=== PATIENT | male | born 1970 | race Caucasian/White ===

== ENCOUNTER 2019-01-31 14:53 | Emergency (ER) | payer SELFPAY ==
[2019-01-31] MEDS ORDERED: Bupivacaine 0.5% 10 ML SDV INJECT ONE (15:04)
[2019-01-31] MEDS ORDERED: Lidocaine 1% 20 ML MDV INJECT ONE (15:04)
[2019-01-31] MEDS ORDERED: Lidocaine 1% 0 ML ONE (15:08)
--- NOTE | 2019-01-31 15:29 | EDM.PDOC ---
ED HPI GENERAL MEDICAL PROBLEM - General Chief Complaint: Laceration Stated Complaint: STITCHES Time Seen by Provider: 01/31/19 15:04 Source of Information: Reports: Patient History Limitations: Reports: No Limitations - History of Present Illness INITIAL COMMENTS - FREE TEXT/NARRATIVE: History of present illness: []Patient was playing with a Frisbee with his nephew and he ran to catch it and ask side of his truck with his left side of his face. His laceration on the corner of his left eye. Patient denies any loss of consciousness, neck pain, visual changes, nausea, vomiting or headache. She is up-to-date with tetanus Review of systems: As per history of present illness and below otherwise all systems reviewed and negative. Past medical history: As per history of present illness and as reviewed below otherwise noncontributory. Surgical history: As per history of present illness and as reviewed below otherwise noncontributory. Social history: No reported history of drug or alcohol abuse. Family history: As per history of present illness and as reviewed below otherwise noncontributory. Physical exam: General: Well developed, well nourished in NAD HEENT: 3 cm vertical laceration lateral to left eye, no entrapment, normocephalic, pupils reactive, negative for conjunctival pallor or scleral icterus, mucous membranes moist, throat clear, neck supple, nontender, trachea midline. Lungs: Clear to auscultation, breath sounds equal bilaterally, chest nontender. Heart: S1S2, regular, negative for clicks, rubs, or JVD. Abdomen: NABS, Soft, nondistended, nontender. Negative for masses or hepatosplenomegaly. Negative for costovertebral tenderness. Pelvis: Stable nontender. Genitourinary: Deferred. Rectal: Deferred. Extremities: Atraumatic, negative for cords or calf pain. Neurovascular unremarkable. Neuro: Awake, alert, oriented. Cranial nerves II through XII unremarkable. Cerebellum unremarkable. Motor and sensory unremarkable throughout. Exam nonfocal. Skin:warm and dry Diagnostics: None Therapeutics: Patient declined pain meds and anesthesia for suturing ED Course: Stable Impression: Facial laceration Prescriptions: None Plan: Follow-up with primary care is needed, sutures out in 5-7 days. Definitive disposition and diagnosis as appropriate pending reevaluation and review of above. - Related Data Allergies Allergy/AdvReac Type Severity Reaction Status Date / Time No Known Allergies Allergy Verified 01/31/19 15:00 Home Meds: Home Meds . [No Known Home Meds] 01/31/19 [History] Past Medical History - Past Health History Medical/Surgical History: Denies Medical/Surgical History - Infectious Disease History Infectious Disease History: Reports: Chicken Pox, Shingles Social & Family History - Family History Family Medical History: Noncontributory - Tobacco Use Smoking Status *Q: Former Smoker Used Tobacco, but Quit: Yes Month/Year Tobacco Last Used: 10/2018 - Caffeine Use Caffeine Use: Reports: None - Recreational Drug Use Recreational Drug Use: No ED ROS GENERAL - Review of Systems Review Of Systems: ROS reveals no pertinent complaints other than HPI. ED EXAM, SKIN/RASH Exam: See Below (See history of present illness) Course - Vital Signs Last Recorded V/S: Last Vital Signs Temp 98.7 F 01/31/19 15:01 Pulse 97 01/31/19 15:01 Resp 20 01/31/19 15:01 BP 165/92 H 01/31/19 15:01 Pulse Ox 95 01/31/19 15:01 - Orders/Labs/Meds Meds: Medications Discontinued Medications Generic Name Dose Route Start Last Admin Trade Name Freq PRN Reason Stop Dose Admin Bupivacaine HCl 10 ml 01/31/19 15:04 Sensorcaine-Mpf 0.5% INJECT 01/31/19 15:05 ONETIME ONE Lidocaine HCl Confirm 01/31/19 15:08 Xylocaine-Mpf 1% Administered 01/31/19 15:09 Dose 5 mls @ as directed .ROUTE .STK-MED ONE Lidocaine HCl 20 ml 01/31/19 15:04 Xylocaine 1% INJECT 01/31/19 15:05 ONETIME ONE Departure - Departure Time of Disposition: 15:28 Disposition: Home, Self-Care 01 Condition: Good Clinical Impression: Facial laceration Qualifiers: Encounter type: initial encounter Qualified Code(s): S01.81XA - Laceration without foreign body of other part of head, initial encounter - Discharge Information *PRESCRIPTION DRUG MONITORING PROGRAM REVIEWED*: No *COPY OF PRESCRIPTION DRUG MONITORING REPORT IN PATIENT KENISHA: No Instructions: Facial Laceration, [id number] Referrals: PCP,Unknown [Primary Care Provider] - Forms: ED Department Discharge Additional Instructions: The following information is given to patients seen in the emergency department who are being discharged to home. This information is to outline your options for follow-up care. We provide all patients seen in our emergency department with a follow-up referral. The need for follow-up, as well as the timing and circumstances, are variable depending upon the specifics of your emergency department visit. If you don't have a primary care physician on staff, we will provide you with a referral. We always advise you to contact your personal physician following an emergency department visit to inform them of the circumstance of the visit and for follow-up with them and/or the need for any referrals to a consulting specialist. The emergency department will also refer you to a specialist when appropriate. This referral assures that you have the opportunity for follow-up care with a specialist. All of these measure are taken in an effort to provide you with optimal care, which includes your follow-up. Under all circumstances we always encourage you to contact your private physician who remains a resource for coordinating your care. When calling for follow-up care, please make the office aware that this follow-up is from your recent emergency room visit. If for any reason you are refused follow-up, please contact the [facility] at and asked to speak to the emergency department charge nurse. Sutures out in 5-7 days return to ER to have this done. [facility] [address] [place] [id number]
== END 2019-01-31 15:49 | disposition home or self-care (01) ==
LOC: MW.ED 14:53
DX: S01.81XA Laceration without foreign body of other part of head, initial encounter (principal); W22.8XXA Striking against or struck by other objects, initial encounter
CPT/HCPCS: 99282